=== PATIENT | male | born 1950 | race Caucasian/White ===

== ENCOUNTER → 2016-04-25 | Outpatient (REF) | payer OTHER | LOC: M SMT 13:20 | PROVIDERS: ATTEND Nurse Practitioner Women's Health | DX: N39.0 Urinary tract infection, site not specified (principal) ==

== ENCOUNTER → 2021-08-08 | Outpatient (CLI) | payer MEDICARE ==
[~2021-08-08] MED LIST: PROHANCE 279.3MG/ML 15ML VIAL As Ordered ONE
== END ==
LOC: M RAD 14:00
DX: N40.1 Benign prostatic hyperplasia with lower urinary tract symptoms (principal)
CPT/HCPCS: 72197; A9576

== ENCOUNTER → 2023-07-03 | Outpatient (CLI) | payer OTHER ==
[~2023-07-03] MED LIST changes: -PROHANCE 279.3MG/ML 15ML VIAL As Ordered ONE; +PROHANCE 279.3MG/ML 15ML VIAL ONE; +PROHANCE 279.3MG/ML 5ML VIAL ONE
== END ==
LOC: M PLAIMG 12:27
PROVIDERS: ATTEND Urology
DX: N40.1 Benign prostatic hyperplasia with lower urinary tract symptoms (principal)
CPT/HCPCS: 72197; A9576

== ENCOUNTER 2024-02-13 09:44 | Inpatient (IN) | payer OTHER ==
[~2024-02-13] VITALS: Ht 175.3 cm; Wt 80.7 kg
[2024-02-13 10:12] LABS: VENOUS BASE EXCESS -3.8 (-2.0-2.0); VENOUS HCO3 23.9 MMOL/L (23.0-27.0); VENOUS PARTIAL PRESSURE CO2 53.4 mmHg (38.0-50.0); VENOUS PARTIAL PRESSURE O2 26.2 mmHg (30.0-50.0); VENOUS PH 7.268 UNITS (7.330-7.430); VENOUS TOTAL CO2 25.5 MMOL/L (24.0-28.0)
[2024-02-13 10:17] LABS: BASO % 0.3 % (0.0-1.0); HEMATOCRIT 42.6 % (42.0-52.0); LYMPH # 0.8 10^3/uL (1.5-5.0); LYMPH % 7.6 % (24.0-44.0); MEAN CORPUSCULAR HEMOGLOBIN 34.2 pg (27.0-33.0); MEAN CORPUSCULAR HGB CONC 35.2 g/dl (32.0-36.5); MONO # 1.1 10^3/uL (0.0-0.8); MONO % 10.2 % (2.0-8.0); NEUTROPHILS # 8.5 10^3/uL (1.5-8.5); NEUTROPHILS % 81.2 % (36.0-66.0); PLATELET COUNT, AUTOMATED 258 10^3/uL (150-450); RED BLOOD COUNT 4.39 10^6/uL (4.30-6.10); WHITE BLOOD COUNT 10.5 10^3/uL (4.0-10.0)
[2024-02-13] MEDS: IPRATROPIUM 0.5MG/ALBUTEROL 2.5MG INH SOL UD 3ML (DUONEB) NEB SCH ×2 (10:21→15:43)
[2024-02-13 10:43] LABS: ALBUMIN 3.5 G/DL (3.2-5.2); BILIRUBIN,DIRECT 0.2 MG/DL (<0.4); BILIRUBIN,TOTAL 0.4 MG/DL (0.3-1.2); CALCIUM LEVEL 9.7 MG/DL (8.3-10.6); CREATININE FOR GFR 1.25 MG/DL (0.70-1.30); GLOMERULAR FILTRATION RATE 59.8 (>42); POTASSIUM SERUM 4.5 MMOL/L (3.5-5.1); TOTAL PROTEIN 7.4 G/DL (5.7-8.2)
[2024-02-13] MEDS ORDERED: methylPREDNISolone 125MG 2ML VIAL IV ONE (10:45)
[2024-02-13] MEDS ORDERED: RANO500T2 PO (11:16)
[2024-02-13] MEDS ORDERED: VENTAER INH (11:16)
[2024-02-13] MEDS ORDERED: ELIQ5TAB PO (11:16)
[2024-02-13] MEDS ORDERED: CYCL-707 PO (11:16)
[2024-02-13] MEDS ORDERED: TRAZ-252 PO (11:16)
[2024-02-13] MEDS ORDERED: AMLO1TAB24 PO (11:16)
[2024-02-13] MEDS ORDERED: RAPA8CAP4 PO (11:16)
[2024-02-13] MEDS ORDERED: ATOR1TAB19 PO (11:16)
[2024-02-13] MEDS ORDERED: METH-1164 PO (11:16)
[2024-02-13] MEDS ORDERED: TRAM50TA2 PO (11:16)
[2024-02-13] MEDS ORDERED: SPIR1AER INH (11:16)
[2024-02-13] MEDS ORDERED: ADVA115A INH (11:16)
[2024-02-13] MEDS ORDERED: LOSA100T46 PO (11:16)
[2024-02-13] MEDS ORDERED: GABA-284 PO (11:16)
[2024-02-13] MEDS ORDERED: HYDR12.55 PO (11:16)
[2024-02-13] MEDS ORDERED: HOME MED LIST COMPLETE! XX SCH (11:20)
[2024-02-13 12:52] LABS: ABG BASE EXCESS -3.8 (-2.0-2.0); ABG HCO3 19.9 MMOL/L (22.0-26.0); ABG O2 SATURATION 91.6 % (95.0-99.0); ABG PARTIAL PRESSURE CO2 32.7 mmHg (35.0-45.0); ABG PARTIAL PRESSURE O2 61.2 mmHg (75.0-100.0); ABG STANDARD HCO3 21.2 MMOL/L. (22.0-26.0); ABG TOTAL CO2 20.9 MMOL/L (23.0-31.0); ABG pH (ARTERIAL) 7.403 UNITS (7.350-7.450)
[2024-02-13] MEDS: OSELTAMIVIR PHOSPHATE 75 MG CAP (TAMIFLU) PO ONE (13:44)
[2024-02-13] MEDS ORDERED: traMADol 50 MG TAB PO PRN (14:25)
[2024-02-13] MEDS ORDERED: methocarbamoL 500 MG TAB PO PRN (14:25)
[2024-02-13] MEDS ORDERED: ACETAMINOPHEN 325 MG TAB PO PRN (14:30)
[2024-02-13] MEDS: hydroCHLOROthiazide 12.5 MG CAPSULE PO SCH (16:16)
[2024-02-13] MEDS: ATORVASTATIN 10 MG TAB PO SCH (16:16)
[2024-02-13] MEDS: amLODIPine 5 MG TAB PO SCH (16:18)
[2024-02-13] MEDS: LOSARTAN 50MG TABLET PO SCH (16:18)
[2024-02-13 17:38] VITALS: BP 114/94; TEMP 98.1; O2SAT 92
[2024-02-13] MEDS: methylPREDNISolone 40MG 1ML VIAL IV SCH (18:36)
[2024-02-13] MEDS: ADVAIR HFA 115/21MCG INHALER INH SCH (19:22)
[2024-02-13 20:00] VITALS: BP 146/80; TEMP 97.9; O2SAT 90
[2024-02-13] MEDS: RANOLAZINE 500MG ER TAB PO SCH (20:44)
[2024-02-13] MEDS: GABAPENTIN 400MG CAP PO SCH (20:44)
[2024-02-13] MEDS: traZODone 50 MG TAB PO SCH (20:44)
[2024-02-13] MEDS: APIXABAN 5 MG TAB (ELIQUIS) PO SCH (20:44)
[2024-02-14] VITALS (17 sets, daily range): BP systolic 118–139; BP diastolic 44–67; TEMP 97.5–98.1; O2SAT 89–94
[2024-02-14 06:54] LABS: HEMATOCRIT 42.2 % (42.0-52.0); HEMOGLOBIN 14.7 g/dl (13.5-17.5); MEAN CORPUSCULAR HEMOGLOBIN 33.6 pg (27.0-33.0); MEAN CORPUSCULAR HGB CONC 34.8 g/dl (32.0-36.5); MEAN CORPUSCULAR VOLUME 96.3 fl (80.0-96.0); PLATELET COUNT, AUTOMATED 254 10^3/uL (150-450); RED BLOOD COUNT 4.38 10^6/uL (4.30-6.10); WHITE BLOOD COUNT 11.6 10^3/uL (4.0-10.0)
[2024-02-14 07:07] LABS: BLOOD UREA NITROGEN 21 MG/DL (9-23); CALCIUM LEVEL 9.5 MG/DL (8.3-10.6); CARBON DIOXIDE LEVEL 20 MMOL/L (20-31); CHLORIDE LEVEL 100 MMOL/L (98-107); CREATININE FOR GFR 1.04 MG/DL (0.70-1.30); GLOMERULAR FILTRATION RATE > 60.0 (>42); GLUCOSE, FASTING 138 MG/DL (74-106); POTASSIUM SERUM 4.3 MMOL/L (3.5-5.1); SODIUM LEVEL 128 MMOL/L (136-145)
[2024-02-14] MEDS ORDERED: CYCLOBENZAPRINE 10MG TABLET PO SCH (09:00)
[2024-02-14] MEDS ORDERED: SODIUM CHLORIDE NASAL 0.65% SPRAY BTL (OCEAN) PRN (10:25)
[2024-02-14 12:28] LABS: BLOOD UREA NITROGEN 24 MG/DL (9-23); CARBON DIOXIDE LEVEL 28 MMOL/L (20-31); CHLORIDE LEVEL 96 MMOL/L (98-107); CREATININE FOR GFR 1.05 MG/DL (0.70-1.30); GLOMERULAR FILTRATION RATE > 60.0 (>42); GLUCOSE, FASTING 111 MG/DL (74-106); POTASSIUM SERUM 4.8 MMOL/L (3.5-5.1); SODIUM LEVEL 133 MMOL/L (136-145)
[2024-02-14 16:37] LABS: OSMOLALITY URINE 486 MOSM/KG (50-1400)
[2024-02-14 16:44] LABS: SODIUM,RANDOM URINE 26 MMOL/L
[2024-02-15] VITALS (18 sets, daily range): BP systolic 139–149; BP diastolic 70–77; TEMP 97.3–98.1; O2SAT 83–94
[2024-02-15] MEDS: ALBUTEROL SULFATE 2.5MG/0.5ML INH NEB SOLN NEB PRN (01:41)
[2024-02-15 07:01] LABS: HEMATOCRIT 43.1 % (42.0-52.0); HEMOGLOBIN 15.2 g/dl (13.5-17.5); MEAN CORPUSCULAR HGB CONC 35.3 g/dl (32.0-36.5); MEAN CORPUSCULAR VOLUME 96.4 fl (80.0-96.0); PLATELET COUNT, AUTOMATED 299 10^3/uL (150-450); RED BLOOD COUNT 4.47 10^6/uL (4.30-6.10); WHITE BLOOD COUNT 12.5 10^3/uL (4.0-10.0)
[2024-02-15 07:25] LABS: BLOOD UREA NITROGEN 24 MG/DL (9-23); CALCIUM LEVEL 10.1 MG/DL (8.3-10.6); CARBON DIOXIDE LEVEL 25 MMOL/L (20-31); CHLORIDE LEVEL 96 MMOL/L (98-107); CREATININE FOR GFR 1.07 MG/DL (0.70-1.30); GLOMERULAR FILTRATION RATE > 60.0 (>42); GLUCOSE, FASTING 118 MG/DL (74-106); POTASSIUM SERUM 4.4 MMOL/L (3.5-5.1); SODIUM LEVEL 132 MMOL/L (136-145)
[2024-02-16] VITALS: BP 140/72; TEMP 97.7; O2SAT 91
[2024-02-16 04:30] VITALS: BP 136/78; TEMP 97.9; O2SAT 90
[2024-02-16 05:48] LABS: HEMATOCRIT 40.7 % (42.0-52.0); HEMOGLOBIN 14.5 g/dl (13.5-17.5); MEAN CORPUSCULAR HGB CONC 35.6 g/dl (32.0-36.5); MEAN CORPUSCULAR VOLUME 95.3 fl (80.0-96.0); PLATELET COUNT, AUTOMATED 295 10^3/uL (150-450); RED BLOOD COUNT 4.27 10^6/uL (4.30-6.10); WHITE BLOOD COUNT 13.7 10^3/uL (4.0-10.0)
[2024-02-16 06:25] LABS: BLOOD UREA NITROGEN 23 MG/DL (9-23); CALCIUM LEVEL 9.4 MG/DL (8.3-10.6); CARBON DIOXIDE LEVEL 26 MMOL/L (20-31); CHLORIDE LEVEL 97 MMOL/L (98-107); CREATININE FOR GFR 0.99 MG/DL (0.70-1.30); GLOMERULAR FILTRATION RATE > 60.0 (>42); GLUCOSE, FASTING 114 MG/DL (74-106); POTASSIUM SERUM 4.5 MMOL/L (3.5-5.1); SODIUM LEVEL 131 MMOL/L (136-145)
[2024-02-16 08:00] VITALS: BP 164/86; TEMP 97.7; O2SAT 88
[2024-02-16] MEDS: predniSONE 20 MG TAB PO SCH (08:17)
[2024-02-16 08:18] VITALS: BP 164/86
[2024-02-16 10:19] VITALS: O2SAT 91
[2024-02-16 12:00] VITALS: BP 140/80; TEMP 98.1; O2SAT 90
[2024-02-16] MEDS ORDERED: PRED10TA2 PO (12:13)
[2024-02-16] MEDS: PREVNAR-20 VACCINE 0.5ML SYRINGE IM.IMMUN ONE (12:18)
== END 2024-02-16 15:04 | disposition home or self-care (01) | DRG 189 ==
LOC: EDBD 09:44 → M ED 09:44 → M ED INP 14:30 → M MSPAV 17:39
PROVIDERS: ADMIT Student in an Organized Health Care Education/Training Program; ATTEND Student in an Organized Health Care Education/Training Program
DX: J96.01 Acute respiratory failure with hypoxia (principal); J44.1 Chronic obstructive pulmonary disease with (acute) exacerbation; E87.1 Hypo-osmolality and hyponatremia; J10.1 Influenza due to other identified influenza virus with other respiratory manifestations; I10 Essential (primary) hypertension; G89.29 Other chronic pain; F17.210 Nicotine dependence, cigarettes, uncomplicated; Z95.5 Presence of coronary angioplasty implant and graft; E78.5 Hyperlipidemia, unspecified; I48.91 Unspecified atrial fibrillation; I25.10 Atherosclerotic heart disease of native coronary artery without angina pectoris; Z79.01 Long term (current) use of anticoagulants; N40.0 Benign prostatic hyperplasia without lower urinary tract symptoms; Z88.5 Allergy status to narcotic agent; Z79.899 Other long term (current) drug therapy